=== PATIENT | female | born 1950 | race Caucasian/White ===

== ENCOUNTER → 2023-05-10 08:02 | Outpatient (REF) | payer MEDICARE, SELFPAY | LOC: HWRAD 08:02 | PROVIDERS: ATTENDING PHYSICIAN Nurse Practitioner Adult Health | DX: F17.210 Nicotine dependence, cigarettes, uncomplicated (principal) | CPT/HCPCS: 71271 ==

== ENCOUNTER → 2023-06-18 09:34 | Outpatient (REF) | payer MEDICARE, SELFPAY | LOC: HWRAD 09:34 | PROVIDERS: ATTENDING PHYSICIAN Nurse Practitioner Adult Health | DX: Z00.00 Encounter for general adult medical examination without abnormal findings (principal); M85.89 Other specified disorders of bone density and structure, multiple sites; Z12.31 Encounter for screening mammogram for malignant neoplasm of breast | CPT/HCPCS: 77063; 77067; 77080 ==

== ENCOUNTER → 2023-07-02 08:12 | Outpatient (REF) | payer MEDICARE, SELFPAY | LOC: RAD 08:12 | PROVIDERS: ATTENDING PHYSICIAN Nurse Practitioner Adult Health; FAMILY PHYSICIAN Internal Medicine Endocrinology, Diabetes & Metabolism | DX: R79.89 Other specified abnormal findings of blood chemistry (principal); E04.1 Nontoxic single thyroid nodule | CPT/HCPCS: 76536; 76700 ==

== ENCOUNTER → 2024-05-11 09:54 | Outpatient (REF) | payer MEDICARE, SELFPAY | LOC: HWRAD 09:54 | PROVIDERS: ATTENDING PHYSICIAN Internal Medicine Critical Care Medicine; FAMILY PHYSICIAN Nurse Practitioner Adult Health | DX: F17.210 Nicotine dependence, cigarettes, uncomplicated (principal) | CPT/HCPCS: 71271 ==

== ENCOUNTER → 2024-05-24 09:08 | Outpatient (REF) | payer MEDICARE, SELFPAY | LOC: HWRAD 09:08 | PROVIDERS: ATTENDING PHYSICIAN Internal Medicine Endocrinology, Diabetes & Metabolism; FAMILY PHYSICIAN Nurse Practitioner Adult Health; REFERRING PHYSICIAN Internal Medicine Gastroenterology | DX: E27.8 Other specified disorders of adrenal gland (principal); E04.1 Nontoxic single thyroid nodule | CPT/HCPCS: 74150; 76536 ==

== ENCOUNTER → 2024-07-04 08:59 | Outpatient (REF) | payer MEDICARE, SELFPAY | LOC: HWWDC 08:59 | PROVIDERS: ATTENDING PHYSICIAN Nurse Practitioner Adult Health | DX: Z12.31 Encounter for screening mammogram for malignant neoplasm of breast (principal) | CPT/HCPCS: 77063; 77067 ==